=== PATIENT | female | born 1950 | race Caucasian/White ===

== ENCOUNTER → 2017-01-31 | Outpatient (CLI) | payer BC | LOC: HEART 5 15:19 | DX: I35.1 Nonrheumatic aortic (valve) insufficiency (principal) | CPT/HCPCS: 93306 ==

== ENCOUNTER → 2021-03-04 | Outpatient (CLI) | payer MEDICARE | LOC: HEART 5 08:31 | DX: R94.31 Abnormal electrocardiogram [ECG] [EKG] (principal); I27.20 Pulmonary hypertension, unspecified; I08.8 Other rheumatic multiple valve diseases; R93.1 Abnormal findings on diagnostic imaging of heart and coronary circulation | CPT/HCPCS: 93306 ==

== ENCOUNTER → 2021-03-20 | Outpatient (CLI) | payer MEDICARE | LOC: MAMO 14:09 | DX: Z12.31 Encounter for screening mammogram for malignant neoplasm of breast (principal); Z80.3 Family history of malignant neoplasm of breast | CPT/HCPCS: 77063; 77067 ==

== ENCOUNTER → 2021-12-08 | Outpatient (CLI) | payer MEDICARE | LOC: HEART 5 09:27 | DX: R05.3 Chronic cough (principal); R06.02 Shortness of breath; J98.6 Disorders of diaphragm; J98.11 Atelectasis; J98.09 Other diseases of bronchus, not elsewhere classified | CPT/HCPCS: 71046; 94060; 94729 ==